=== PATIENT | female | born 1940 | race Two or more races ===

== ENCOUNTER 2024-03-23 11:49 | Emergency (ER) | payer MEDICARE, MEDICAID ==
[~2024-03-23] VITALS: Ht 157.5 cm; Wt 45.2 kg
[2024-03-23 13:18] LABS: Basophils # (auto) 0 10 ^3/uL (0-0.2); Basophils % (auto) 0.4 % (0.0-2.0); Eosinophils # (auto) 0 10 ^3/uL (0-0.8); Eosinophils % (auto) 0.3 % (0.0-7.0); Hemoglobin 12.9 g/dL (12.2-16.2); Lymphocytes # (auto) 1.9 10 ^3/uL (0.4-5.4); Lymphocytes % (auto) 17.1 % (10.0-50.0); Mean Corpuscular Hemoglobin 30.3 pg (28.0-32.0); Mean Corpuscular Volume 91.7 fL (80.0-100.0); Monocytes # (auto) 0.8 10 ^3/uL (0-1.3); Monocytes % (auto) 6.7 % (0.0-12.0); Neutrophils # (auto) 8.5 10 ^3/uL (1.6-8.6); Neutrophils % (auto) 75.5 % (37.0-80.0); Red Blood Cells 4.25 10^6/uL (4.0-5.20); Red Cell Distribution Width 14.8 % (11.8-14.3); White Blood Cell 11.2 10^3/uL (4.4-10.8)
[2024-03-23 13:58] LABS: Alanine Aminotransferase 16 U/L (7-40); Albumin 4.5 g/dL (3.2-4.8); Alkaline Phosphatase 39 U/L (46-116); Aspartate Aminotransferase 18 U/L (13-40); Bilirubin, Total 0.9 mg/dL (0.2-1.0); Blood Urea Nitrogen 13 mg/dL (9-23); Calcium 10.2 mg/dL (8.5-10.1); Carbon Dioxide 24 mmol/L (20-30); Chloride 108 mmol/L (98-107); Glucose 92 mg/dL (74-106); Potassium 3.6 mmol/L (3.5-5.1); Sodium 139 mmol/L (136-145)
[2024-03-23 14:10] LABS: Erythrocyte Sedimentation Rate 10 mm/hr (0-20)
[2024-03-23 14:39] LABS: Anion Gap 7 (5-15)
[2024-03-23 14:40] LABS: BUN/Creatinine Ratio 20.3 (10.0-20.0)
[2024-03-23 15:01] LABS: Urine Bacteria FEW /hpf (None Seen); Urine Blood 3+ /uL (Negative); Urine Clarity Clear (Clear); Urine Color Yellow (Yellow); Urine Mucus FEW (None Seen); Urine Protein, UAD TRACE (Negative); Urine Specific Gravity 1.021 (1.001-1.035); Urine Urobilinogen 2 mg/dL (Negative); Urine WBC 2 /hpf (0 - 5); Urine pH 6.5 (5.0-9.0)
[2024-03-23] MEDS ORDERED: CEPH500T PO (16:26)
[2024-03-23] MEDS ORDERED: ACET500T58 PO (16:26)
[2024-03-23] MEDS ORDERED: CHLO4LIQ EX (16:26)
[2024-03-23 16:38] VITALS: BP 106/60; PULSE 55; RESP 20; TEMP 98.7; O2SAT 96
[2024-03-23] MEDS: CEPHALEXIN 250 MG CAP PO ONE (16:42)
== END 2024-03-23 16:53 | disposition home or self-care (01) ==
LOC: ER 11:49 → EDBD 11:49 → ER 16:53
DX: L02.511 Cutaneous abscess of right hand (principal); I10 Essential (primary) hypertension; Z79.899 Other long term (current) drug therapy
CPT/HCPCS: 26010; 36415; 71045; 73130; 80053; 81001; 82962; 84484; 85025; 85652

== ENCOUNTER 2025-09-15 05:32 | Emergency (ER) | payer MEDICARE, MEDICAID ==
[~2025-09-15] VITALS: Ht 147.3 cm; Wt 49.5 kg
[~2025-09-15 05:32] MED LIST: ACET500T58 PO; CEPH500T PO; CHLO4LIQ EX
[2025-09-15 07:58] VITALS: BP 142/45; PULSE 65; RESP 16; TEMP 98; O2SAT 96
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
== END 2025-09-15 08:50 | disposition home or self-care (01) ==
LOC: ER 05:32
DX: M79.604 Pain in right leg (principal); I10 Essential (primary) hypertension; M19.90 Unspecified osteoarthritis, unspecified site; Z79.899 Other long term (current) drug therapy; V43.62XA Car passenger injured in collision with other type car in traffic accident, initial encounter; Y93.89 Activity, other specified; Y92.488 Other paved roadways as the place of occurrence of the external cause; Y99.8 Other external cause status